=== PATIENT | female | born 1950 | race Caucasian/White ===

== ENCOUNTER → 2016-06-09 | Outpatient (CLI) | payer OTHER ==
[2016-05-26 10:14] VITALS: BP 91/70
[~2016-06-09] VITALS: Ht 170.2 cm; Wt 62.6 kg
[~2016-06-09] MED LIST: ASPI-482 PO; ATOR40TA59 PO; CHOL10003 PO; DOCU-27 PO; LEVO75TA PO; OMEG100021 PO; SINCALIDE 1.3 MCG in IV NORMAL SALINE 50ML 30 ML IV ONE
--- NOTE | 2016-06-09 07:58 | RAD ---
EXAM: Abdomen sonogram. HISTORY: Atypical chest pain. TECHNIQUE: Sonographic imaging of the abdomen was performed. COMPARISON: None. FINDINGS: The liver is normal in size. No focal hepatic lesion is seen. The common bile duct is normal in caliber. The gallbladder, right kidney, pancreas, inferior vena cava and aorta are unremarkable. There is no free fluid. IMPRESSION: Unremarkable abdomen sonogram.
--- NOTE | 2016-06-09 10:30 | RAD ---
EXAM: Nuclear hepatobiliary scan. HISTORY: Pain. TECHNIQUE: Following intravenous administration of 5.5 mCi Tc 99m Choletec, anterior images of the abdomen were obtained at five minute intervals through one hour. Subsequently, 1.3 CCK was administered and additional images to assess gallbladder ejection fraction were obtained. FINDINGS: There is prompt radiotracer uptake by the liver. No focal defect is seen. There is normal excretion into the biliary tree. The gallbladder is visualized within sixty minutes and there is free flow into the duodenum. The gallbladder ejection fraction is 81%. IMPRESSION: Normal radionuclide biliary scan.
== END | disposition home or self-care (01) ==
LOC: US 06:38
PROVIDERS: ATTEND Internal Medicine Gastroenterology
DX: R07.89 Other chest pain (principal)
CPT/HCPCS: 76705; 78226; 96374; A9537; J2805